=== PATIENT | female | born 1970 | race Caucasian/White ===

== ENCOUNTER 2019-10-07 07:38 | Outpatient (CLI) | payer BC, OTHER ==
[2019-10-08 12:19] LABS: SARS-CoV-2 MS2 Positive; SARS-CoV-2 N Gene Negative; SARS-CoV-2 S Gene Negative; SARS-CoV-2 orf1ab Negative
== END 2019-10-07 07:39 | disposition home or self-care (01) ==
LOC: LABBT 07:38
PROVIDERS: ATTEND Neurological Surgery
DX: Z01.812 Encounter for preprocedural laboratory examination (principal); Z11.59 Encounter for screening for other viral diseases; M54.12 Radiculopathy, cervical region
CPT/HCPCS: 87635; U0003

== ENCOUNTER 2019-10-09 05:45 | Day surgery (SDC) | payer BC ==
[2019-10-04 16:41] VITALS: BMI 29.9
--- NOTE | 2019-10-08 13:18 | HP ---
HISTORY OF PRESENT ILLNESS: Ms. Antony is a very pleasant 48-year-old woman, referred to us for evaluation of 14 months worth of severe left-sided neck pain and left upper extremity pain to the best fit a C7 pattern. She has been treating this with Lyrica, muscle relaxers, and now three rounds of epidural steroid injections with Dr. Coffman, which have all provided some minor relief, but symptoms continued to persist. She has noticed trouble with pushups and weakness in her left triceps, which is most concerning to her. She has an MRI from [facility] revealing mostly well-appearing cervical spine other than moderate to severe left-sided foraminal stenosis at C6-7 that best fits her symptoms. PHYSICAL EXAMINATION: Deferred secondary to [facility] Telehealth visit. PAST MEDICAL HISTORY: Significant for unspecified kidney problem or bladder problem, anemia, osteoarthritis. PAST SURGICAL HISTORY: section x2 and nephrolithotomy. MEDICATIONS: 1. Aleve. 2. Zyrtec. 3. Xyzal. 4. Iron. 5. Lyrica. 6. Tizanidine. ALLERGIES: NO KNOWN DRUG ALLERGIES. ASSESSMENT: Cervical radiculopathy. PLAN: Dr. Briseno met with the patient, reviewed imaging, advocated for C6-C7 ACDF. He explained to the patient risks, benefits, and alternatives to the procedure. The patient expressed understanding and elected to move forward with surgery as discussed. I do believe the patient is mentally competent and capable of making medical decisions for herself. We will move forward with surgery as planned. Job ID: [id number]
[2019-10-09] MEDS ORDERED: Thrombin 5000 UNITS/5 ML VIAL ONE (06:13)
[2019-10-09] MEDS ORDERED: Fentanyl 100 MCG/2 ML VIAL ONE ×2 (06:58→07:52)
[2019-10-09] MEDS ORDERED: SUGAMMADEX SODIUM 200 MG/2 ML VIAL ONE (08:08)
[2019-10-09] MEDS ORDERED: Rocuronium Bromide 10 MG/ML (10ML VIAL) ONE (10:07)
[2019-10-09] MEDS ORDERED: Dexamethasone 20 MG/5 ML VIAL ONE (10:07)
[2019-10-09] MEDS ORDERED: Ondansetron PF 4 MG/2 ML Vial ONE (10:07)
[2019-10-09] MEDS ORDERED: Lidocaine 1% PF 5 ML VIAL ONE (10:07)
[2019-10-09] MEDS ORDERED: PROPOFOL 200 MG/20 ML VIAL ONE (10:07)
--- NOTE | 2019-10-09 10:40 | OP ---
DATE OF PROCEDURE: 10/09/2019 [employer] INTELL[employer] OFFICER: Sky Barnett PA-C INDICATION: Pain. DIAGNOSIS: Cervical radiculopathy. PROCEDURE PERFORMED: Anterior cervical diskectomy and fusion, C6-C7. ANESTHESIA: General. DESCRIPTION OF PROCEDURE: The patient was brought into the operating room and placed under general anesthesia. She was placed on table in a supine position. A transverse incision was planned over the lateral aspect of the neck on the right. After prepping and draping and after an appropriate preoperative pause, the incision was created. The underlying platysma muscle was identified and incised. A blunt tissue plane anterior to the sternocleidomastoid muscle was used to gain access to the prevertebral space. Self-retaining retractors were placed in the wound for optimal exposure. After confirming the appropriate level with C-arm fluoroscopy, an annulotomy was performed in the C6-C7 disk space. All disk material as well as anterior and posterior osteophytes were removed. After completing the decompression, a 7-mm lordotic PEEK cage packed with allograft and autograft material was placed within the interbody space. An anterior cervical plate was then fashioned to the front of spine and secured with a total of 4 fixed screws. Midline and lateral structures were inspected and found to be free from significant trauma. The wound was irrigated. Hemostasis was maintained throughout. The wound was then closed in anatomic layers and a pressure dressing was applied. There were no known procedural complications. Job ID: [id number]
--- NOTE | 2019-10-09 18:26 | EKG ---
Test Reason : PREOP Blood Pressure : / mmHG Vent. Rate : 073 BPM Atrial Rate : 073 BPM P-R Int : 142 ms QRS Dur : 076 ms QT Int : 390 ms P-R-T Axes : 063 069 029 degrees QTc Int : 429 ms Sinus rhythm with marked sinus arrhythmia Otherwise normal ECG Confirmed by KRYSTAL GRIFFITHS (2) on 10/09/2019 6:25:58 PM Referred By: ROXANA Confirmed By:KRYSTAL GRIFFITHS
== END 2019-10-09 10:41 | disposition home or self-care (01) ==
LOC: SDC 05:45
PROVIDERS: ATTEND Neurological Surgery
PROC: 0RG10A0 Fusion of Cervical Vertebral Joint with Interbody Fusion Device, Anterior Approach, Anterior Column, Open Approach (ICD-10-PCS; principal; 2019-10-09)
PROC: 0RT30ZZ Resection of Cervical Vertebral Disc, Open Approach (ICD-10-PCS; principal; 2019-10-09)
DX: M54.12 Radiculopathy, cervical region (principal); D64.9 Anemia, unspecified; Z79.899 Other long term (current) drug therapy
CPT/HCPCS: 76000; 93005; 93010; C1713; C1776; J0690; J1100; J2001; J2405; J2704; J3010